=== PATIENT | male | born 1990 | race Caucasian/White ===

== ENCOUNTER 2018-05-28 21:07 | Inpatient (IN) ==
--- NOTE | 2018-05-28 21:32 | Emergency Department Note ---
General Adult HPI - General Chief complaint: Skin/Abscess/Foreign Body Stated complaint: rectal pain Time Seen by Provider: 05/28/18 21:21 Source: patient Mode of arrival: ambulatory Limitations: no limitations - History of Present Illness HPI Narrative: 28-year-old male presents with rectal foreign body. Onset about an hour or 2 prior to arrival. He has been drinking alcohol and having sexual intercourse with his girlfriend. She bought some sort of plastic vibrating sex toy that got sucked up in his rectum. States there is blood because he has been trying to get himself and cannot. He last ate a couple hours ago but has been drinking alcohol all evening. Last drink shortly prior to arrival - Related Data Home Medications Medication Instructions Recorded Confirmed No Known Home Meds 05/28/18 05/28/18 Allergies Allergy/AdvReac Type Severity Reaction Status Date / Time No Known Drug Allergies Allergy Verified 05/28/18 21:10 Review of Systems All systems ED: reviewed and negative except as stated. 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 Absent: conjunctival injection ENT: mucous membranes moist Respiratory: Present: normal lung sounds bilaterally. Absent: respiratory distress, rales/crackles, accessory muscle use Cardiovascular: Present: regular rate, normal heart sounds Abdominal: Present: soft, normal bowel sounds. Absent: distention, tenderness, mass Rectal: Present: normal rectal tone, other (Moderate amount of dried blood around the rectum and buttocks. No active bleeding. Not able to feel the foreign body digitally but can feel vibration) Extremities: Present: normal inspection Neurological: Present: alert, oriented X3 Psychiatric: Present: normal affect, normal mood Skin: Present: warm, dry, intact, normal color Course Course Narrative: 28-year-old at 2140 I did speak with Dr. Mcconnell, surgeon litigation partner who agrees to accept this patient. We will admit him observation and hydrate him as he has been drinking alcohol and plan to go to surgery early tomorrow morning. NPO Vital Signs Temperature 97.7 F 05/28/18 21:08 Pulse Rate 80 05/28/18 21:08 Respiratory Rate 20 05/28/18 21:08 Blood Pressure 153/88 05/28/18 21:08 Pulse Oximetry (%) 96 05/28/18 21:08 Temperature 97.7 F 05/28/18 21:08 Pulse Rate 80 05/28/18 21:08 Respiratory Rate 20 05/28/18 21:08 Blood Pressure 153/88 05/28/18 21:08 Pulse Oximetry (%) 96 05/28/18 21:08 Medical Decision Making - Lab Data Result diagrams: 05/28/18 21:40 05/28/18 21:40 - Radiology Data Radiology results reviewed: Yes I reviewed the patient's radiology results. Disposition Pt seen by WORK TICKET DISTRIBUTOR/PA only: Yes Clinical Impression: Rectal foreign body Disposition: Xfer As Outpt/Obs ([facility]) Condition: Fair Referrals: No,PCP [Primary Care Provider] - Time of Disposition: 21:53
[2018-05-28] MEDS ORDERED: 0.9 % SODIUM CHLORIDE 1,000 ML IV ONE (21:43)
[2018-05-28] MEDS ORDERED: ONDANSETRON 4 MG/2 ML VIAL IV ONE (21:43)
[2018-05-28] MEDS ORDERED: HYDROmorphone 2 MG/ML VIAL IV SCH (21:45)
[2018-05-28 22:15] LABS: Basophils # (Auto) 0 K/mcL (0.0-0.3); Basophils % (Auto) 0.7 % (0.0-2.0); Eosinophils # (Auto) 0.2 K/mcL (0.0-0.7); Eosinophils % (Auto) 2.9 % (0.0-7.0); Granulocytes % (Auto) 57.2 % (38.0-78.0); Lymphocytes % (Auto) 31.3 % (15.5-49.0); Mean Cell Volume 90.6 fL (80.0-100.0); Monocytes # (Auto) 0.5 K/mcL (0.1-0.9); Monocytes % (Auto) 7.9 % (1.0-12.0); Platelet Count 330 K/mcL (140-440); RBC 4.93 M/mcL (4.50-5.90); Red Cell Distribution Width 12.8 % (11.5-14.5)
[2018-05-28] MEDS: LORazepam 2 MG/ML VIAL IV PRN (22:26)
[2018-05-28 22:36] LABS: ALT/SGPT 17 U/l (0-40); Albumin 4.5 gm/dL (3.2-5.2); Albumin/Globulin Ratio 1.4 (1.0-2.3); Alkaline Phosphatase 104 U/L (39-117); Blood Urea Nitrogen 12 mg/dl (6-20)
[2018-05-28] MEDS ORDERED: HYDROmorphone 2 MG/ML VIAL ONE (23:34)
[2018-05-28] MEDS: 0.9 % SODIUM CHLORIDE 1,000 ML IV SCH (23:55)
[2018-05-29] MEDS ORDERED: HYDROmorphone 2 MG/ML VIAL ONE (02:57)
[2018-05-29] MEDS: 0.9 % SODIUM CHLORIDE 1,000 ML IV SCH ×3 (03:56→17:33)
[2018-05-29] MEDS: LORazepam 2 MG/ML VIAL IV PRN ×2 (03:57→08:09)
--- NOTE | 2018-05-29 06:00 | XRay Report ---
CLINICAL INFORMATION: rectal fb COMPARISON: None. FINDINGS: A cylindrical shaped foreign body spanning 2.4 x 9 cm overlies the mid sacrum. This is in the expected location of the distal sigmoid colon. The stomach, small bowel and large bowel are, otherwise, normal in caliber with normal dual gas pattern. No evidence of bowel obstruction. No free air to suggest perforation. No soft tissue mass or organomegaly. IMPRESSION: 2.4 cm x 9 cm cylindrical shaped metallic foreign body overlying the mid sacrum in the expected location of the distal sigmoid colon. No evidence of GI tract perforation or bowel obstruction Interpreted and Authenticated by: Khalif Choi 05/29/18
[2018-05-29] MEDS: HYDROmorphone 2 MG/ML VIAL IV PRN ×5 (06:54→23:15)
--- NOTE | 2018-05-29 08:58 | XRay Report ---
CLINICAL INFORMATION: F/U foreign body in rectum COMPARISON: 05/28/2018 plain film FINDINGS: The cylindrical shaped metallic foreign body is seen to better advantage on today's film and actually spans 20 x 2 cm. It has migrated proximally and now overlies the expected location of the mid and proximal sigmoid colon. No free air to suggest perforation and no evidence of bowel obstruction. IMPRESSION: 20 x 2 cm cylindrical shaped metallic foreign body has migrated proximally and now overlies the expected location of the proximal/mid sigmoid colon. No evidence of bowel perforation or obstruction. Interpreted and Authenticated by: Khalif Choi 05/29/18
[2018-05-29] MEDS ORDERED: LEVOFLOXACIN 750 MG/150 ML BAG IV ONE (09:00)
[2018-05-29] MEDS ORDERED: PROPOFOL 200 MG/20 ML VIAL IV ONE (12:15)
[2018-05-29] MEDS ORDERED: fentaNYL 100 MCG/2 ML VIAL IV ONE (12:15)
[2018-05-29] MEDS ORDERED: SUCCINYLCHOLINE 20 MG/ML ML IV ONE (12:15)
[2018-05-29] MEDS ORDERED: LIDOCAINE HCL/PF 100 MG/5 ML SYRINGE IV ONE (12:15)
[2018-05-29] MEDS ORDERED: ROCURONIUM 10 MG/ML ML IV ONE (12:15)
[2018-05-29] MEDS ORDERED: KETAMINE 100 MG/ML ML IV ONE (12:15)
[2018-05-29] MEDS ORDERED: MIDAZOLAM 2 MG/2 ML VIAL IV ONE (12:15)
[2018-05-29] MEDS ORDERED: NEOSTIGMINE 1 MG/ML VIAL IV ONE (12:15)
[2018-05-29] MEDS ORDERED: GLYCOPYRROLATE 0.2 MG/ML VIAL IV ONE (12:15)
[2018-05-29] MEDS ORDERED: fentaNYL 100 MCG/2 ML VIAL IV PRN (14:30)
[2018-05-29] MEDS ORDERED: LACTATED RINGERS 1,000 ML IV SCH (14:30)
[2018-05-29] MEDS ORDERED: HYDROmorphone 2 MG/ML VIAL IV PRN (14:30)
[2018-05-29] MEDS ORDERED: ACETAMINOPHEN 1,000 MG/100 ML BOTTLE IV ONE (14:30)
[2018-05-29] MEDS ORDERED: MEPERIDINE 25 MG/ML SYRINGE IV PRN (14:30)
[2018-05-29] MEDS ORDERED: KETOROLAC 30 MG/ML VIAL IV PRN (14:30)
[2018-05-29] MEDS ORDERED: ONDANSETRON 4 MG/2 ML VIAL IV PRN (14:30)
[2018-05-29] MEDS ORDERED: IPRATROPIUM/ALBUTEROL 3 ML AMPUL.NEB NEB PRN (14:30)
--- NOTE | 2018-05-29 14:37 | General Surg History&Physical ---
History of Present Illness Patient information: Note initiated : 05/29/18 at 2:37 pm Service Date, if different from initiated Date: [] Patient: Triston Shah a 28 y/o M admitted on 05/28/18 for rectal pain. Chief Complaint: [] HPI: Mr. Shah is a 28 year old M` admitted for monitoring prior to being taken to the operating room for removal of a sexual instrument from his rectum. The patient presented to the emergency room with a complaint of rectal pain. He states that his partner lost control of cash shortage investigator on the sexual instrument and it could not be retrieved. After about 3 hours he finally came to the emergency room. The patient was significantly inebriated. Abdominal x-rays shows an oblong object in his high rectum. Because it will require general anesthesia it was decided to wait until his alcohol level was decreased before subjecting him to general anesthesia because of fear of possible aspiration. Review of Systems - Constitutional as per HPI, other (review of system is negative except as related to the history of present illness. No positive findings were noted however the patient was significantly inebriated) Past History Past medical history: No chronic medical illness Past surgical history: No operative procedures Past family history: Hypertension Past social history: Positive every day smoker Positive alcohol use Denies drug use Medications and Allergies Home Medications Medication Instructions Recorded Confirmed Type No Known Home Meds 05/28/18 05/28/18 History Allergies Allergy/AdvReac Type Severity Reaction Status Date / Time No Known Drug Allergies Allergy Verified 05/28/18 21:10 Exam Temp Pulse Resp BP Pulse Ox 98.2 F 77 16 122/72 95 05/29/18 08:00 05/29/18 08:00 05/29/18 08:00 05/29/18 08:00 05/29/18 08:00 - General physical appearance well developed, well nourished, no distress - Eyes PERRL, normal ocular movement - ENT normal pinna, normal nares, normal mucosa, no hearing loss, no congestion - Head Head exam IM: Present: atraumatic, normocephalic - Neck no masses, no bruits, trachea midline, no lymphadenopathy, no venous distension - Cardiovascular Cardiovascular exam IM: Present: normal rate and rhythm - Respiratory normal expansion, normal respiratory effort, clear to percussion, clear to auscultation - Abdomen Abdomen: Present: soft, tender (mild tenderness left lower quadrant with firm tubular mass left lower quadrant), bowel sounds Hernia: Present: none - Genitourinary Present: normal penis with no external lesions - Rectum Rectum: Present: no bleeding, other (decreased anal tone with blood on the examining finger; unable to palpate the device digitally) - Integumentary Present: no rash, no growths, no abnormal pigmentation - Neurologic Present: normal coordination, normal sensation - Musculoskeletal Present: normal gait, normal posture - Psychiatric Present: oriented to time, oriented to person, oriented to place, speech is normal, memory intact Assessment and Plan (1) Rectal foreign body Patient will be observed overnight until it is safe for him to have general anesthesia and plans will be made for extraction of the mass under anesthesia tomorrow 29 May 2018. He is informed of the possibility that we may have to do open exploration because of the level of the device in is rectosigmoid Status: Acute (2) Alcohol intoxication Status: Acute
--- NOTE | 2018-05-29 14:40 | Brief Operative Note ---
Pre-op diagnosis: foreign body of rectum Post-op diagnosis: other (foreign body of recto-sigmoid) Procedure: examination of rectum under anesthesia STRAIGHT SIGMOIDOSCOPY TO 25 CM SLEXIBLE SIGMOIDOSCOPY TO 50 CM LAPAROTOMY WITH REMOVAL OF FOREIGN BODY OF SIGMOID COLON PER RECTUM Grafts/Implants: No Anesthesia: GETA Findings: VERY LARGE TUBULAR SEX TOY TIGHTLY ADHERENT IN SIGMOID COLON IN TRANSVERSE PLANE Surgeon: Ramos Mcconnell Estimated blood loss (cc): 20 Specimens Removed/Pathology: other (BATTERY OPERATED TUBULAR SEX TOY) Condition: stable Disposition: PACU
--- NOTE | 2018-05-29 15:46 | XRay Report ---
CLINICAL INFORMATION: Sponge count COMPARISON: 05/29/2018 FINDINGS: The foreign body has been removed removed. Stool gas pattern is unremarkable. No free air, soft tissue mass sponges or other radiopaque foreign bodies. IMPRESSION: Negative Interpreted and Authenticated by: Khalif Choi 05/29/18
[2018-05-29] MEDS: ACYCLOVIR 400 MG TABLET PO SCH ×2 (17:35→20:35)
[2018-05-30] MEDS: LORazepam 2 MG/ML VIAL IV PRN ×3 (00:55→21:16)
[2018-05-30] MEDS: 0.9 % SODIUM CHLORIDE 1,000 ML IV SCH ×3 (01:55→13:31)
[2018-05-30] MEDS: HYDROmorphone 2 MG/ML VIAL IV PRN ×8 (01:58→22:02)
--- NOTE | 2018-05-30 08:41 | XRay Report ---
CLINICAL INFORMATION: F/U Foreign body in rectum COMPARISON: 05/29/2018 FINDINGS: The stool gas pattern is unremarkable. No free air, soft tissue mass or organomegaly. No residual foreign body IMPRESSION: Negative Interpreted and Authenticated by: Khalif Choi 05/30/18
[2018-05-30] MEDS: ACYCLOVIR 400 MG TABLET PO SCH ×3 (09:48→21:09)
--- NOTE | 2018-05-30 11:12 | General Surgery Progress Note ---
Subjective Patient reports: feels better, still having pain, pain is less, flatus, no bowel movement, afebrile Narrative: Note initiated : 05/30/18 at 11:10 am Service Date, if different from initiated Date: [] Patient: Triston Shah 28 y/o M admitted on 05/29/18 for rectal pain. Chief Complaint: [Patient is stable except for incisional discomfort. He denies nausea and complained of hunger. He's had flatus but no bowel movement.] Objective Temp Pulse Resp BP Pulse Ox 98.5 F 71 16 117/71 93 05/30/18 07:25 05/30/18 07:25 05/30/18 07:25 05/30/18 07:25 05/30/18 07:25 - Additional Data Intake & Output - Last 24 hours: Intake & Output 05/28/18 05/29/18 05/30/18 05/31/18 05:59 05:59 05:59 05:59 Intake Total 1000 / 1000 2250 / 2250 Output Total 450 / 450 415 / 415 Balance 550 / 550 1835 / 1835 Weight 191 lb 191 lb 8 oz - General physical appearance well developed, well nourished, no distress, moderate pain - Eyes PERRL, normal ocular movement - ENT normal pinna, normal nares, normal mucosa, no hearing loss, no congestion - Neck no masses, no bruits, trachea midline, no lymphadenopathy, no venous distension - Respiratory normal expansion, normal respiratory effort, clear to auscultation - Cardiovascular Cardiovascular exam: Present: normal rate and rhythm, RRR, +S1, +S2. Absent: irregular rhythm, JVD, systolic murmur, tachycardia - Abdomen tender (stable except for incisional discomfort; good active bowel sounds) - Rectum normal sphincter tone, no hemorrhoids, no tenderness, no masses, no bleeding - Integumentary no rash, no growths, no abnormal pigmentation - Neurologic normal coordination, normal sensation - Musculoskeletal normal gait, normal posture - Psychiatric oriented to time, oriented to person, oriented to place, speech is normal, memory intact - Labs 05/28/18 21:40 05/28/18 21:40 Assessment and Plan (1) Rectal foreign body Status: Acute Assessment and plan: Saline lock IV Regular diet as tolerated Delayed discharged today Current Visit: Yes - Time Spent With Patient Total time spent is greater than 50% in coordination of care (as documented) at patient's floor/unit and/or counseling patient:
--- NOTE | 2018-05-30 15:28 | Surgical Pathology Report ---
HISTOLOGY SPECIMEN MICROSCOPIC DIAGNOSIS RECTOSIGMOID, FOREIGN BODY, REMOVAL: -- CONSISTENT WITH FOREIGN BODY. (RLF:adj) CLINICAL HISTORY Rectal pain. GROSS DESCRIPTION Received fresh is a white plastic cylindrical device with a purple stripe that is labeled Durex with +/- buttons on it. It is 17 cm in length and up to 3.5 cm in diameter. Gross only, no sections taken. (SCB:adj) Electronically Signed by: Colleen Bone M.D.
[2018-05-30] MEDS: 0.9 % SODIUM CHLORIDE 10 ML SYRINGE IV SCH (21:21)
[2018-05-31] MEDS: HYDROmorphone 2 MG/ML VIAL IV PRN ×6 (02:50→15:40)
[2018-05-31] MEDS: 0.9 % SODIUM CHLORIDE 10 ML SYRINGE IV SCH ×2 (06:05→15:44)
[2018-05-31] MEDS: ACYCLOVIR 400 MG TABLET PO SCH ×2 (08:07→15:44)
[2018-05-31] MEDS: oxyCODONE/APAP 10/325MG TABLET PO PRN ×2 (08:07→12:06)
--- NOTE | 2018-05-31 11:55 | Operative Note ---
DATE OF OPERATION: 05/29/2018 PREOPERATIVE DIAGNOSIS: Foreign body of rectum. POSTOPERATIVE DIAGNOSIS: Foreign body in rectosigmoid. PROCEDURES: 1. Examination under anesthesia. 2. Straight sigmoidoscopy with attempted extraction of foreign body. 3. Flexible sigmoidoscopy to 50 cm with attempted extraction of foreign body. 4. Laparotomy with removal of foreign body of sigmoid colon through rectum. SURGEON: Ramos Mcconnell M.D. FINDINGS: Very large tubular smooth sex toy tightly adherent in sigmoid colon in the transverse plane. DESCRIPTION OF PROCEDURE: Under general anesthesia, the patient was placed in high lithotomy position. Palpation of his abdomen revealed the mass in the left lower quadrant. A digital dilation of the anus was carried out to 4 fingerbreadths and the hand was then inserted into the rectum. With compression of the mass downward I was not able to reach the end of the mass. Next, the straight sigmoidoscope was inserted and advanced to 25 cm. The insufflation was carried out. At 25 cm I still could not see or reach the foreign body. The straight sigmoidoscope was removed and a flexible colonoscope was introduced and at 50 cm, I was able to see the end of the foreign body. It was a very large tubular plastic smooth oblong object. I was able to get the heavy duty snare around the lower margin but because the object was so smooth the snare would not adequately hold the mass enough to try to extract it. After much maneuvering it was decided that patient would need to have an open procedure. He was placed in low lithotomy position. The abdomen was prepped and draped in a sterile field. A lower midline incision was made. The mass could be felt in the mid sigmoid colon, extending into the left lower quadrant. Compression on the mass was not adequate to push it distally. I then went distally and with the flexible sigmoidoscope was able to dilate the distal sigmoid enough so that there was air around the mass. Once this was done, I was unable to straighten the sigmoid colon and with gentle upward and medial straightening of the sigmoid colon I was then able to gently push the device into the distal sigmoid and into the rectum. I was then able to grasp it through the anal vault and extract it. There was no injury to the colon. Irrigation was carried out. The fascia and peritoneum were closed with running #1 Prolene. Subcutaneous tissue was closed with 2-0 Monocryl. Skin was closed with michelle. Tegaderm dressing was placed. The patient tolerated the procedure well. He was placed in a supine position, awakened and transferred to the postanesthetic care unit in satisfactory condition. LCS:arlin Job ID: [id number] Doc ID: [id number] Ramos Mcconnell M.D.
--- NOTE | 2018-05-31 17:05 | Discharge Summary ---
Providers - Providers Patient information: Note initiated : 05/31/18 at 5:02 pm Service Date, if different from initiated Date: [] Patient: Triston Shah 28 y/o M admitted on 05/29/18 for rectal pain. Chief Complaint: [] Date of admission: 05/28/18 Discharge date: 05/31/18 Attending physician: Ramos Mcconnell Hospitalization Hospital course: 28-year-old male who presented with foreign body of rectosigmoid colon. The anesthesia to extract the foreign body was delayed because of extreme level of intoxication. He was taken to the OR following day where was noted that the optic was in the transverse portion of the sigmoid colon and could not be manipulated through the rectum. Laparotomy was done and the colon was straightened and the foreign body was pushed through the distal sigmoid colon into the rectum and was extracted. He's been monitored for 48 hours and is doing exceptionally well. He is stable for discharge home. Discharge diagnosis: foreign body of the rectosigmoid Reason for admission: foreign body of rectosigmoid Procedures: Therapeutic colonoscopy Exploratory laparotomy Pertinent studies/significant findings: None Complications: None Exam Temp Pulse Resp BP Pulse Ox 96.5 F L 70 16 101/61 96 05/31/18 12:00 05/31/18 12:00 05/31/18 12:00 05/31/18 12:00 05/31/18 12:00 - General physical appearance well developed, well nourished, no distress - Eyes PERRL, normal ocular movement - ENT normal pinna, normal nares, normal mucosa, no hearing loss, no congestion - Head Head exam IM: Present: atraumatic, normocephalic - Neck no masses, no bruits, trachea midline, no lymphadenopathy, no venous distension - Cardiovascular Cardiovascular exam IM: Present: normal rate and rhythm - Respiratory normal expansion, normal respiratory effort, clear to percussion, clear to auscultation - Abdomen Abdomen: Present: soft, tender (tender surgical incision otherwise benign abdomen), bowel sounds Hernia: Present: none - Genitourinary Present: normal penis with no external lesions - Rectum Rectum: Present: normal sphincter tone, no hemorrhoids, no tenderness, no masses, no bleeding - Integumentary Present: no rash, no growths, no abnormal pigmentation - Neurologic Present: normal coordination, normal sensation - Musculoskeletal Present: normal gait, normal posture - Psychiatric Present: oriented to time, oriented to person, oriented to place, speech is normal, memory intact Discharge Plan - Patient/Caregiver Discharge Instructions Activity: increase activity as tolerated Diet: Regular Diet Additional Instructions: Leave dressing intact until your return to the office Office follow-up in 2 weeks for staple removal Prescriptions: oxyCODONE/APAP [Percocet 10-325Mg] 1 tab PO Q4HP PRN #40 tab PRN Reason: Pain Level 3-6 - Follow up Plan Follow up with: No,PCP [Primary Care Provider] - Disposition: Home, Self-Care Prognosis: Good Rehab Potential: Good I certify that the patient requires SNF services.: No Overall status at discharge: patient is not back to baseline Pending Studies Resuscitation Status Full Code Diet Regular Diet Start MonMay 30 1113 Acyclovir (Zovirax) 400 mg PO TID KIMBERLY Last Admin: 05/31/18 15:44 Dose: 400 mg Documented by: Admin: 05/31/18 08:07 Dose: 400 mg Documented by: Admin: 05/30/18 21:09 Dose: 400 mg Documented by: Admin: 05/30/18 15:45 Dose: 400 mg Documented by: Admin: 05/30/18 09:48 Dose: 400 mg Documented by: Admin: 05/29/18 20:35 Dose: 400 mg Documented by: Admin: 05/29/18 17:35 Dose: 400 mg Documented by: [email or web address] Hydromorphone HCl (Dilaudid) 1 mg IV Q2HP PRN PRN Reason: PAIN LEVEL > 6 Last Admin: 05/31/18 15:40 Dose: 1 mg Documented by: Admin: 05/31/18 13:34 Dose: 1 mg Documented by: Admin: 05/31/18 10:10 Dose: 1 mg Documented by: Admin: 05/31/18 08:06 Dose: 1 mg Documented by: Admin: 05/31/18 06:05 Dose: 1 mg Documented by: Admin: 05/31/18 02:50 Dose: 1 mg Documented by: Admin: 05/30/18 22:02 Dose: 1 mg Documented by: Admin: 05/30/18 19:48 Dose: 1 mg Documented by: Admin: 05/30/18 16:12 Dose: 1 mg Documented by: Admin: 05/30/18 13:53 Dose: 1 mg Documented by: Admin: 05/30/18 09:48 Dose: 1 mg Documented by: Admin: 05/30/18 07:27 Dose: 1 mg Documented by: Admin: 05/30/18 04:05 Dose: 1 mg Documented by: Admin: 05/30/18 01:58 Dose: 1 mg Documented by: Admin: 05/29/18 23:15 Dose: 1 mg Documented by: Admin: 05/29/18 20:35 Dose: 1 mg Documented by: Admin: 05/29/18 16:16 Dose: 1 mg Documented by: [email or web address] Admin: 05/29/18 08:55 Dose: 1 mg Documented by: Admin: 05/29/18 06:54 Dose: 1 mg Documented by: [email or web address] Lorazepam (Ativan) 1 mg IV Q2HP PRN PRN Reason: ANXIETY/SEDATION Last Admin: 05/30/18 21:16 Dose: 1 mg Documented by: Admin: 05/30/18 16:02 Dose: 1 mg Documented by: Admin: 05/30/18 00:55 Dose: 1 mg Documented by: Admin: 05/29/18 08:09 Dose: 1 mg Documented by: [email or web address] Admin: 05/29/18 03:57 Dose: 1 mg Documented by: Admin: 05/28/18 22:26 Dose: 1 mg Documented by: [email or web address] Oxycodone/Acetaminophen (Percocet 10-325mg) 1 tab PO Q4HP PRN PRN Reason: PAIN LEVEL 3-6 Last Admin: 05/31/18 12:06 Dose: 1 tab Documented by: Admin: 05/31/18 08:07 Dose: 1 tab Documented by: [email or web address] Sodium Chloride (Saline Flush) 10 ml IV Q8 KIMBERLY Last Admin: 05/31/18 15:44 Dose: 10 ml Documented by: Admin: 05/31/18 06:05 Dose: 10 ml Documented by: Admin: 05/30/18 21:21 Dose: 10 ml Documented by: CHELA Shift Summary 05/31/18 05:12 Shift Summary by Clem Clarke Slept most of the night. Has had pain meds twice, ativan once. Needed to change rooms & he walked from 125 to 131. Pain was markedly increased, and he did have to stop just past 129 to let the pain subside some to get the rest of the way. Voiding w/o problems. Starting to have flatus. Not having nausea, but abd will start to cramp & hurt if he eats too much too fast. He is hoping to get to go home today. Initialized on 05/31/18 05:12 - END OF NOTE
== END 2018-05-31 17:44 | disposition home or self-care (01) | DRG 358 ==
LOC: ED 21:07 → MEDSUR 21:07
PROVIDERS: ADMIT Family Medicine Adult Medicine; ATTEND Family Medicine Adult Medicine